=== PATIENT | female | born 1955 | race Caucasian/White ===

== ENCOUNTER 2025-07-30 15:22 | Inpatient (IN) | payer MEDICARE, BC ==
[~2025-07-30] VITALS: Ht 162.6 cm; Wt 56.4 kg
--- NOTE | 2025-07-30 15:45 | ELECTROCARDIOGRAPH REPORT ---
[facility] Test Date: 2025-07-30 Test Time: 15:25:56 Pat Name: JENA FISHMAN Department: EMERGENCY ROOM Room: Gender: F Snuff Blender: ELOY : 1955 Requested By: DEANA MORAN Order Number: [id number] Reading MD: Measurements Intervals [place] Rate: 65 P: -4 [place]: 129 QRS: 19 QRSD: 89 T: 45 QT: 414 QTc: 431 Interpretive Statements Sinus rhythm Low voltage, precordial leads Please click the below link to view image of tracing.
[2025-07-30 16:01] LABS: MEAN PLATELET VOLUME 9.6 FL (7.4-10.4); RED CELL DISTRIBUTION WIDTH 13.0 % (11.5-14.5)
[2025-07-30 16:22] LABS: CREATININE 0.86 MG/DL (0.40-0.90); PRO BRAIN NATRIURETIC PEPTIDE 741 PG/ML (0-125); TOTAL CARBON DIOXIDE 27.8 MMOL/L (24-32); eCRCL 51 ML/MIN; eGFR 65 ML/MIN
--- NOTE | 2025-07-30 16:48 | RADIOLOGY REPORT ---
EXAM: DI CHEST,SINGLE VIEW HISTORY: CP TECHNIQUE: 1 view of the chest COMPARISON: None FINDINGS/IMPRESSION: LUNGS: No pleural effusion, consolidation, or pneumothorax MEDIASTINUM: Unremarkable BONES: No acute osseous abnormality OTHER: None
--- NOTE | 2025-07-30 17:21 | Physician Documentation ---
History of Present Illness ~ Chief Complaint: Chest Pain Stated Complaint: CP Time Seen by MD: 16:56 Mode of Arrival: POV HPI 15-year-old female who presents to the emergency department with complaint of chest pain. Chest pain began a proximally 1:30 p.m. while at rest with associated radiation to the left arm without diaphoresis and/or shortness of breath. Pain is described as a pressure type sensation on a scale of 3-4. No prior history of the same. She is a nonsmoker and nondrinker. She does have a history of dyslipidemia with statin allergy. Use to take aspirin yet discontinued because of frequent bruising. C/P presently with normotensive VS & normal EKG reading. Her pain remains a 3/4 and it is not reproducible with chest wall palpation. Her heart score upon arrival is a four. Past surgical history is that of exploratory lap only. She is accompanied to Emergency Dep artment with her . Patient reports known allergy to statins, Roselyn and recently placed on thyroxine for subclinical hypo thyroidism. Most recently was treated with Bactrim for UTI. No neurological symptoms. No rash. Medication Reconciliation Allergies: Coded Allergies: atorvastatin (Verified Allergy, Unknown, 07/30/25) Review of Systems All Other Systems at this time: Reviewed and Negative Constitutional: Reports: weakness Respiratory: Reports: no symptoms reported Cardiovascular: Reports: chest pain, left arm pain Gastrointestinal: Reports: nausea Musculoskeletal: Reports: no symptoms reported Hematologic/Lymphatic: Reports: no symptoms reported Physical Exam Vital Signs: Temperature: 98.1, Source: Temporal, Heart Rate: 72, Respiratory Rate: 18, BP: 169/72, Pulse Oximetry: 100, Weight: 56.360 Oxygen Flow Rate: 0 General Appearance: alert, WD/WN, mild distress EENT: normal ENT inspection Neck: normal inspection Neck No JVD Respiratory: lungs clear, normal breath sounds Chest: no accessory muscle use Cardiovascular: normal peripheral pulses Gastrointestinal: normal palpation Rectal: deferred Extremities: normal inspection, normal capillary refill Neurologic: oriented x4 Psychiatric: normal mood/affect Skin: normal color, warm/dry Progress Results/Orders Results/Orders Orders - EDI DISLA PAC Urinalysis, Cult If Indicated (07/30/25 17:08) Nitroglycerin Sublingual Tab (Nitrostat (07/30/25 17:15) D-Dimer (07/30/25 17:21) Pt Inr (07/30/25 17:21) PTT (07/30/25 17:21) Osmoality Ua (07/30/25 17:21) Osmolality (07/30/25 17:21) Ua Sodium Random (07/30/25 17:21) Normal Saline 1000ml (0.9% Sodium Chlori (07/30/25 17:30) Page Hospitalist (07/30/25 17:27) Fill Out Med Reconciliation (07/30/25 17:27) Completed Orders - EDI DISLA PAC Aspirin 81mg Chew Tablet (Aspirin 81mg C (07/30/25 17:15) Medications Received in ER Medications (Trade) Dose Ordered Sig/Cody Route PRN Reason Start Time Stop Time Status Last Admin Dose Admin (aspirin 81MG chew tablet) 81 mg ONCE ONCE PO 07/30/25 17:15 07/30/25 17:16 DC 07/30/25 17:25 81 MG (Nitrostat SL tablet) 0.4 mg Q5MIN PRN SL chest pain 07/30/25 17:15 07/30/25 17:25 0.4 MG Vital Signs 07/30/25 07/30/25 07/30/25 15:40 16:57 17:10 Temp 98.1 Pulse 63 72 Resp 18 18 18 B/P (MAP) 167/86 169/72 (104) Pulse Ox 98 100 O2 Flow Rate 0 Laboratory Tests Test 07/30/25 15:52 White Blood Count 8.6 Red Blood Count 4.36 Hemoglobin 13.7 Hematocrit 39.1 Mean Corpuscular Volume 89.6 Mean Corpuscular Hemoglobin 31.4 H Mean Corpuscular Hemoglobin Concent 35.1 Red Cell Distribution Width 13.0 Platelet Count 217 Mean Platelet Volume 9.6 Neutrophils (%) (Auto) 73.5 Lymphocytes (%) (Auto) 15.1 L Monocytes (%) (Auto) 10.4 Eosinophils (%) (Auto) 0.6 Basophils (%) (Auto) 0.4 Neutrophils # (Auto) 6.3 Lymphocytes # (Auto) 1.3 Monocytes # (Auto) 0.9 Eosinophils # (Auto) 0.1 Basophils # (Auto) 0.0 CBC Comment D-Dimer Comment Coagulation Comments Sodium Level 120 *L Potassium Level 4.3 Chloride Level 87 L Carbon Dioxide Level 27.8 Anion Gap 5 L Blood Urea Nitrogen 7 Creatinine 0.86 Estimated GFR/1.73 m2 65 BUN/Creatinine Ratio 8.1 L Glucose Level 95 Calcium Level 9.0 Troponin I High Sensitivity 6 Pro-B-Type Natriuretic Peptide 741 H Albumin 4.0 Chemistry Comments Heart Score: Heart Score Response (Comments) Value History Moderate Suspicious 1 EKG Normal 0 Age >65 2 Risk Factors 1 or 2 risk factors 1 Troponin Normal limit 0 Total 4 Medical Decision Making Additional Information 70-year-old female who presents to the emergency department with a active chest pain. EKG upon arrival non-STEMI, chest x-ray imaging reassuring and initial troponin within normal limits. Heart score four. Workup in the emergency department consists of additional screening labs to include D-dimer fraction excretion of sodium, urinalysis and coags. Initial treatment included aspirin and nitroglycerin. Frequent re-evaluations by nursing staff and physician staff. Screening labs initially showed a sodium of 120 without neurological symptoms. Initial feeling is that this may be caused by the recent Bactrim for UTI causing SIADH.. Discussed the case with hospitalist who will admit the patient. Suspect SIADH, chest pain that may be cardiac in etiology. Pending further evaluation and workup at this time by hospitalist. Can not exclude congestive heart failure, dissection, pulmonary embolus, autoimmune or other unforeseen pulmonary cardiac pathologies. Patient pending hospitalist evaluation and admission. Departure Disposition: ADMITTED INPATIENT Admitted to Inpatient Unit: to hospitalist Admission Level of Care: PCU Impression: Primary Impression: Chest pain at rest Additional Impressions: Hyponatremia UTI (urinary tract infection) Qualified Codes: N39.0 - Urinary tract infection, site not specified Dyslipidemia Referrals: NO PRIMARY CARE PROVIDER (PCP) Signature Scribe Signature: . Attestation: . EDI DISLA PAC Jul 30, 2025 17:20
[2025-07-30] MEDS: normal saline 1000ml 1,000 ML IV SCH ×2 (17:33→17:46)
[2025-07-30] MEDS ORDERED: magnesium sulf-water 4G/100mL 100 ML IV PRN (17:35)
[2025-07-30] MEDS ORDERED: magnesium hydroxide 30ml (MOM) UD suspension PO PRN (17:35)
[2025-07-30] MEDS ORDERED: morphine 4 MG/ML inj SYRINge IV PRN ×2 (17:35)
[2025-07-30] MEDS ORDERED: potassium Cl 40MEQ/1/2NS 520ml 520 ML IV PRN (17:35)
[2025-07-30] MEDS ORDERED: magnesium Cl slow-release 64mg tablet PO PRN (17:35)
[2025-07-30] MEDS ORDERED: magnesium sulf-water 2g/50mL 50 ML IV PRN (17:35)
[2025-07-30] MEDS ORDERED: ondansetron/PF 4mg/2ml inj IV PRN (17:35)
[2025-07-30] MEDS ORDERED: HYDROmorphone inj. 0.5 MG/0.5 ML DISP.SYRIN IV PRN (17:35)
[2025-07-30] MEDS ORDERED: mag hydrox/Alum hydrox/simeth 30ml oral suspension PO PRN (17:35)
[2025-07-30] MEDS ORDERED: potassium Cl 20 mEq SR tablet PO PRN (17:35)
[2025-07-30] MEDS ORDERED: HYDROmorphone/PF 0.2 MG/ML SYRINGE IV PRN (17:35)
[2025-07-30] MEDS ORDERED: HYDROcodone/acetaminophen 5mg/325mg tablet PO PRN (17:35)
[2025-07-30] MEDS ORDERED: HYDROcodone/acetaminophen 10/325mg tab PO PRN (17:35)
[2025-07-30 17:48] LABS: APTT 29 SECONDS (22-32); INR 1.0 INR
[2025-07-30 18:03] LABS: LEUKOCYTE ESTERASE ,URINE NEGATIVE (Neg); NITRITES, URINE NEGATIVE (Neg); OCCULT BLOOD,URINE TRACE-INTACT (Neg)
[2025-07-30 18:04] LABS: UA COLLECTION TYPE CLN CATCH MIDSTREAM
[2025-07-30 18:05] LABS: SQUAMOUS EPITHELIAL CELL,UR NONE SEEN /LPF (FEW)
--- NOTE | 2025-07-30 18:08 | HISTORY AND PHYSICAL-Residence ---
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 Patient endorses chest pain is 4/10 the started this morning pressure-like, associated with diaphoresis and shortness of breath, nausea. 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 She was given aspirin and nitroglycerin in the ER. Patient states that she was recently diagnosed with high TSH and normal T3, T4 levels. She had cold intolerance, fatigue and hair thinning and was started on a low dose of levothyroxine recently two weeks ago. She also had a UTI two weeks ago for which she finished five day course of Bactrim but her symptoms have not resolved yet. Patient states that she had small renal calculi on ultrasound. She denies any fever, chills, recurrent UTIs, hematuria. Allergies: Coded Allergies: atorvastatin (Verified Allergy, Unknown, 07/30/25) Past Medical History Past Medical History Hypothyroidism Past Surgical History Surgical History Comment None Past Social History Social History Comment Denies smoking, alcohol, drugs ROS All Other Systems: Reviewed and Negative ROS Reviewed in full negative except for the pertinent positives in HPI Constitutional: Reports: weakness Respiratory: Reports: no symptoms reported Cardiovascular: Reports: chest pain, left arm pain Gastrointestinal: Reports: nausea Musculoskeletal: Reports: no symptoms reported Hematologic/Lymphatic: Reports: no symptoms reported Exam Vitals: Vital Signs Date Time Temp Pulse Resp B/P (MAP) Pulse Ox O2 Delivery O2 Flow Rate FiO2 07/30/25 17:45 66 18 107/73 (84) 100 0 07/30/25 15:40 98.1 General: General: well developed, well nourished. Awake , alert, and oriented x4, resting comfortably in the bed, in no acute distress . HEENT: Atraumatic, normocephalic, EOMI, anicteric sclera B; pink conjunctiva; PERRLA, normal oropharynx, moist oral and nasal mucosa. Tympanic membrane , nose , throat clear. Neck: Trachea midline. Supple, full range of motion, no JVD, bruit , hepatojugular reflex , lymphadenopathy or masses, or other lesions Cardiac: Regular rhythm, regular rate no murmurs, rubs, or gallops. Normal S1 and S2, no S3 noticed. PMI is normal. Respiratory: Equal breath sounds bilaterally, no tachypnea; lungs clear to auscultation bilaterally, no wheezing ,rub or rales, or crackles. Chest wall is symmetric and without deformity. No signs of trauma. Chest wall is nontender. No signs of respiratory distress. Resonance is normal upon percussion bilaterally. Gastrointestinal: Abdomen symmetric, non-distended, soft, non-tender, normal bowel sounds x4 quadrant, normoactive, no hepatosplenomegaly , no masses , no bruit, no flank pain bilaterally. No voluntary guarding, rebound, or rigidity. No tenderness to percussion. No pulsatile masses. Equal femoral pulses. No Sykes's sign or McBurney point tenderness. Back; no CVA tenderness bilaterally, no deformities. Neck and back are without deformity as well. No tenderness noted on palpation of the spinous processes. Spinous processes are midline. Cervical, thoracic, and lumbar paraspinal muscles are not tender and are without spasm. : normal external genitalia, without lesions, swelling, masses or tenderness. Musculoskeletal: Extremities, normal range of motion, non-tender, muscle strength 5/5 x 4. Negative Homans signs bilaterally on lower extremity. Distal pulses full symmetrical, no clubbing, cyanosis , edema. Neurological: Speech is clear, alert, and oriented x 4. No motor or sensory deficit, deep tendon reflexes normal, cerebellar intact. Cranial nerves II-XII intact. Psych: Alert and or appropriate, normal affect. Vascular: Good distal pulses, which are equal x4; capillary refill less than 2 seconds. Skin: Warm, dry, no pallor, no rash or petechiae. Diagnostic Data Last Recorded Lab Results: 07/30/25 1552 07/30/25 1552 Diagnostic Data: Laboratory Tests Test 07/30/25 15:52 Prothrombin Time 10.5 SECONDS (9.0-12.0) INR International Normalized Ratio 1.0 INR Activated Partial Thromboplast Time 29 SECONDS (22-32) D-Dimer 0.75 MG/L FEU (0-0.50) H D-Dimer Comment Coagulation Comments Advance Care Planning Advanced Care plannin - 30 Minutes (I spent a total of 17 minutes on reviewing various resuscitative measures/ ACP with the patient at the time of admission. The patient has decided on a full code status) Additional Plan Unstable angina Heart score four EKG shows sinus rhythm, no Q-waves, ST elevation no depression. Serial troponins are within normal limits. Received aspirin, nitroglycerin in the ER. Heart score is four Patient never had a stress test in the past but open to having one. Follow up with the echocardiogram, lipid panel Hypotonic Hyponatremia secondary to UTI versus hypothyroidism versus medication induced hyponatremia Serum osmolality is 252, hence hypoosmolar hyponatremia. Urine osmolality, urine sodium, TSH pending. Hyponatremia likely secondary to UTI. Patient is hypovolemic. Other possibility is that trimethoprim (Bactrim) causes renal salt wasting as urinary sodium is greater than 20 this could be probable etiology for her sodium loss. Discontinued trimethoprim sulfamethoxazole. Started on IV fluids NS at the rate of 50 mL/hour with a goal to correct sodium <8 mEq in 24 hours. Monitor BNP q.6 hours to prevent over-correction of sodium and prevent osmotic demyelination syndrome. Patient does not have any clinical signs of mental clouding, drowsiness, altered mental status. Restart home levothyroxine after med rec. Recent UTI Patient continues to have urinary symptoms, however UA does not show any active infection. Started on ceftriaxone IV 1 g daily day one. Follow up with the urine cultures. Code Status: Full code DVT Prophylaxis: Heparin Analgesia/Sedation: [place] p.r.n. Lines/Tubes: PIV Gi Prophylaxis: None Nutrition: Regular diet PT: Yes Prognosis: Guarded Disposition: Admit to PCU with telemetry monitoring Anjum Sevilla MD Internal Medicine Resident PGY-2 Date of Service: Jul 30, 2025 Billing Provider: JANELL KINNEY MD,ANJUM SEVILLA, RES Jul 30, 2025 18:08
[2025-07-30 18:18] LABS: OSMOLALITY UA 123 MOSM/K (50-1400)
[2025-07-30] MEDS: CefTRIAXone/D5W-Rocephin 1gm 50 ML IV SCH (18:36)
[2025-07-30] MEDS ORDERED: LEVO25TA7 PO (18:49)
[2025-07-30 19:04] LABS: CREATININE 0.84 MG/DL (0.40-0.90); TOTAL CARBON DIOXIDE 26.8 MMOL/L (24-32); eCRCL 52 ML/MIN; eGFR 67 ML/MIN
[2025-07-30] MEDS: K and/or MAG REPLACEMENT MC SCH (20:00)
[2025-07-30] MEDS: docusate sod 100mg capsule PO SCH (20:00)
[2025-07-30] MEDS: heparin, porcine 5000 units/ml vial SQ SCH (20:19)
[2025-07-30 22:00] VITALS: BP 135/64; PULSE 60; RESP 14; TEMP 97.7; O2SAT 99
[2025-07-30 22:30] VITALS: BP 130/71; PULSE 96; RESP 14; RESP 20; TEMP 97.7; O2SAT 97; O2SAT 99
[2025-07-30 23:02] VITALS: BP_SYST 130; BP_SYST 138; BP_DIAS 71; BP_DIAS 76; BP_DIAS 84
[2025-07-30 23:46] LABS: CREATININE 0.88 MG/DL (0.40-0.90); TOTAL CARBON DIOXIDE 28.0 MMOL/L (24-32); eCRCL 50 ML/MIN; eGFR 63 ML/MIN
[2025-07-31] VITALS (15 sets, daily range): BP systolic 114–177; BP diastolic 57–105; PULSE 59–107; RESP 13–16; TEMP 97.1–98.1; O2SAT 95–100
[2025-07-31 06:38] LABS: MEAN PLATELET VOLUME 9.6 FL (7.4-10.4); RED CELL DISTRIBUTION WIDTH 12.9 % (11.5-14.5)
[2025-07-31 06:46] LABS: CHOL/HDL RATIO 3.4 (0.00-4.99); CREATININE 0.73 MG/DL (0.40-0.90); LDL CHOLESTEROL 103 MG/DL (50-100); TOTAL CARBON DIOXIDE 26.3 MMOL/L (24-32); eCRCL 60 ML/MIN; eGFR 78 ML/MIN
[2025-07-31] MEDS: levoTHYROXINE 25mcg tablet PO SCH ×2 (08:00→11:00)
[2025-07-31] MEDS ORDERED: SULF1TAB45 PO (08:47)
[2025-07-31] MEDS ORDERED: METR-349 (08:47)
--- NOTE | 2025-07-31 10:50 | ELECTROCARDIOGRAPH REPORT ---
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 DEREK Quintanilla Measurements Intervals [place] Rate: 66 P: 82 CO: 154 QRS: 20 QRSD: 82 T: 51 QT: 401 QTc: 421 Interpretive Statements Sinus rhythm Multiple premature complexes, vent & supraven Probable left atrial enlargement Electronically Signed On 07-31-2025 16:29:[address] DEREK Quintanilla Please click the below link to view image of tracing.
[2025-07-31] MEDS ORDERED: metoprolol tartrate 1mg/ml inj IV PRN (11:20)
[2025-07-31] MEDS ORDERED: aminophylline 250mg/10ml inj. IV PRN (11:20)
[2025-07-31 13:06] LABS: CREATININE 0.79 MG/DL (0.40-0.90); TOTAL CARBON DIOXIDE 28.8 MMOL/L (24-32); eCRCL 56 ML/MIN; eGFR 72 ML/MIN
[2025-07-31] MEDS: regadenoson 0.4mg/5ml syringe IV PRN (14:27)
--- NOTE | 2025-07-31 15:15 | PROGRESS NOTE- Residence ---
Progress Note - Resident Providers to CC Resident Creating Document: SHERIN JAMES RES CC: JANELL KINNEY MD ~ Antibiotic Timeout Antibiotic Ordered?: Yes Subjective Patient was seen and examined at her bedside, with her by her side. Patient had another episode of mild left-sided chest pain, rated the pain a three on 10, not associated with position or food, she claims that the pain was similar to the pain she had yesterday. However ECG did not show any significant changes patient's heart rate continued to be in 80-100 range. Ordered STRESS TEST for this patient considering patient's age and repeated chest pains. No other acute overnight symptoms reported Objective Vital Signs Date Time Temp Pulse Resp B/P (MAP) Pulse Ox O2 Delivery O2 Flow Rate FiO2 07/31/25 14:33 88 16 114/63 98 Room Air 07/31/25 11:00 97.1 07/30/25 18:47 0 General: Awake, oriented to person, place and time HEENT: Conjunctive are pink, sclerae clear, no icterus, pupil is equal in both sides, reactive to light, no ear discharge, no pharyngeal erythema or an edema. Neck: Supple, no JVD, no lymphadenopathy and thyromegaly. Chest: Equal air entry on both lungs, no additional sounds no rhonchi no wheezing at the moment. Cardiovascular: S1-S2 regular sinus rhythm and, regular rate, no gallops, no rubs, no murmurs Abdomen: No visible peristalsis, Bowel sounds present on auscultation, soft, no guarding, no rigidity Extremities: No obvious deformities, no pitting edema bilaterally, capillary refill intact, peripheral pulsations are intact on both sides Central Nervous System: No focal neurological deficits, no motor or sensory weakness in all 4 extremities, could move all 4 extremities, 2+ deep tendon reflexes, negative Babinski. Musculoskeletal: No joint swelling, deformities, inflammations, and no scoliosis and back tenderness Skin: Warm and dry. Dry oral mucosa. 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 Plan Plan Unstable angina Heart score four EKG shows sinus rhythm, no Q-waves, ST elevation no depression. Serial troponins are within normal limits. Echocardiogram showed EF of 65-70% Patient another episode of chest pain rated the pain three on 10, EKG today showed no significant change. Ordered stress test for the patient keeping in mind patient's recurrent episodes of chest pain, unstable angina Lipid profile showed very slight elevation of LDL 103,rest of the parameters appeared normal Patient is an extremely active person. Plan -follow up with stress test report Hypothyroidism Patient's TSH was 2.06, Continue patient's home medication levothyroxine 25 mcg Hypotonic hypovolemic hyponatremia Serum osmolality is 252, urine sodium is 25, urine osmolality is 123 Patient does not have any clinical signs of mental clouding, drowsiness, altered mental status. Patient recently had a five day course of Bactrim for her UTI outpatient Bactrim may cause renal salt wasting, urinary sodium is greater than 20 consistent with renal salt wasting and timeline of hyponatremia coinciding with the initiation of medication. Serum sodium prior to initiation of medication he was 132 Patient's repeat sodium today is at 136, initially it was 120 -discontinued patient's sodium replacement Recent UTI Patient's burning micturition subsided today, however urinalysis was negative and WBC within normal range Plan -continue to follow with patient's urine culture -continued Rocephin 1 g Code Status: Full code DVT Prophylaxis: Heparin Analgesia/Sedation: [place] p.r.n. Lines/Tubes: PIV Gi Prophylaxis: None Nutrition: Regular diet PT: Yes Prognosis: Guarded Disposition: Patient is currently undergoing her stress test,follow up with stress test report Sherin James MD Internal Medicine Resident PGY-1 PGY2 resident attestation: I have seen and evaluated the patient independently. I have reviewed the history, physical examination, laboratory and imaging findings and the assessment and plan documented by the PGY1 resident. I agree with the findings and plan as documented with the following additions/modifications: Physical exam: General: Awake and Alert, no acute distress. HEENT: Conjunctiva pink, Sclera clear, Mucus Membranes moist Neck: Supple without masses and tenderness. Resp: Unlabored. Equal breath sounds bilaterally. Heart: Regular rhythm, normal S1 and S2, no rub, murmur or gallop, muffled heart sounds. Abdomen: Soft and non tender no organomegaly. Normal bowel sounds x4 quadrant normoactive. No guarding or rigidity. Extremities: Normal ROM, no swelling, nontender. No cyanosis,clubbing or edema. 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 Skin: Warm and Dry. Unstable angina Stress test negative. Safe to discharge home tomorrow. Hypotonic hyponatremia secondary to Bactrim use trimethoprim (Bactrim) may cause renal salt wasting, urinary sodium is greater than 20 consistent with renal salt wasting and timeline of hyponatremia coinciding with the initiation of medication. Serum sodium prior to initiation of medication he was 132 Discontinued trimethoprim sulfamethoxazole. Discontinue IV fluids to prevent rapid correction of sodium UTI, resolved with IV antibiotics Anjum Brenner MD PGY2 internal medicine resident Date of Service: Jul 31, 2025 Billing Provider: JANELL KINNEY MD, JAHNAVI, RES Jul 31, 2025 15:15 ANJUM SANDERS, RES Jul 31, 2025 18:41
--- NOTE | 2025-07-31 15:58 | RADIOLOGY REPORT ---
Procedure: NJ NM KAITLIN SCAN Exam Date: 07/31/2025 01:30 PM Reason for study/Clinical History: unstable angina Comparison Study: None Myocardial Perfusion Study with SPECT Technique: The patient received an intravenous injection of 8.6 mCi of technetium-99m sestamibi while at rest. After a short delay, SPECT tomographic images of the heart were obtained. The patient then went to the stress lab where they received an intravenous infusion of 0.[address] andard protocol. 34.7 mCi of technetium-99m sestamibi was injected intravenously immediately after the start of the lexiscan infusion. Gated SPECT tomographic images of the heart were acquired and processed. Findings: No reversible perfusion defect. End diastolic volume: 54 mL End systolic volume: 22 mL The left ventricular ejection fraction is 59 %. (normal greater than 50%) Impression: No reversible defect. The left ventricular ejection fraction is 59 %.
[2025-07-31] MEDS: hydrALAZINE 20mg/ml inj. IV ONE (17:15)
[2025-07-31 20:10] LABS: CREATININE 0.74 MG/DL (0.40-0.90); TOTAL CARBON DIOXIDE 25.6 MMOL/L (24-32); eCRCL 59 ML/MIN; eGFR 77 ML/MIN
[2025-08-01 02:00] VITALS: BP 124/64; PULSE 71; RESP 15; TEMP 97.6; O2SAT 96
[2025-08-01 02:06] LABS: CREATININE 0.66 MG/DL (0.40-0.90); TOTAL CARBON DIOXIDE 23.0 MMOL/L (24-32); eCRCL 67 ML/MIN; eGFR 88 ML/MIN
[2025-08-01] MEDS: potassium Cl 20 mEq SR tablet PO PRN (02:38)
[2025-08-01 06:00] VITALS: BP 129/67; PULSE 56; RESP 12; TEMP 97.5; O2SAT 100
[2025-08-01 06:47] LABS: CREATININE 0.85 MG/DL (0.40-0.90); TOTAL CARBON DIOXIDE 26.9 MMOL/L (24-32); eCRCL 52 ML/MIN; eGFR 66 ML/MIN
[2025-08-01 06:52] LABS: MEAN PLATELET VOLUME 9.8 FL (7.4-10.4); RED CELL DISTRIBUTION WIDTH 13.1 % (11.5-14.5)
[2025-08-01 08:00] VITALS: RESP 12; O2SAT 100
--- NOTE | 2025-08-01 14:04 | DISCHARGE SUMMARY-Residence ---
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 Patient endorsed chest pain to be 4/10 pressure-like, associated with diaphoresis and shortness of breath, nausea. She was given aspirin and nitroglycerin in the ER. Patient's EKG findings did not show any significant ST segment elevation, patient's pain subsided over a period of time. Patient had 3 negative troponins. Patient's echocardiogram reported EF of 65-70% and no other significant findings were reported. However,patient had another episode of chest pain the following day, we ordered a stress test at that point. Stress test reported no reversible defect and left ventricular ejection fraction of 59%. She did not require any further investigation at this point as NSTEMI and STEMI were ruled out. Patient had complaints of burning micturition few days before admission, and she was prescribed Bactrim outpatient clinic. Patient also developed hypotonic hyponatremia and urine sodium was 25, we will possibly due to Bactrim usage. Patient's sodium was initially 120, treated appropriately with normal saline and on admission patient's sodium was between 135-137. Patient continued to have burning micturition symptoms so we treated her with ceftriaxone. Patient has a known history of hypothyroidism, rated a repeat TSH which was within the normal range, we continued her home medication levothyroxine 25 mcg. Significant findings: Echocardiogram 07/31/25 Conclusion Overall LVEF is 65-70%. Normal LV size and wall thickness. Overall systolic function is normal. RV is mildly dilated in size with normal function. Trileaflet AV appears mildly sclerotic without stenosis or insufficiency. Mild MV annular calcification and leaflet thickening without stenosis. Trace regurgitation. TV appears structurally normal with mild eccentric regurgitation. Normal PV without stenosis, physiologic insufficiency. Normal pericardium. No effusion. Stress test: 07/31/25 No reversible defect. The left ventricular ejection fraction is 59 %. Vital Signs Date Time Temp Pulse Resp B/P (MAP) Pulse Ox O2 Delivery O2 Flow Rate FiO2 08/01/25 08:00 12 100 Room Air 08/01/25 06:00 59 08/01/25 06:00 97.5 129/67 (87) 07/30/25 18:47 0 Laboratory Tests Test 07/30/25 15:52 07/30/25 17:43 07/30/25 17:57 07/30/25 18:41 White Blood Count 8.6 X10'3 Red Blood Count 4.36 X10'6 Hemoglobin 13.7 g/dl Hematocrit 39.1 % Mean Corpuscular Volume 89.6 FL Mean Corpuscular Hemoglobin 31.4 PG Mean Corpuscular Hemoglobin Concent 35.1 g/dL Red Cell Distribution Width 13.0 % Platelet Count 217 X10'3 Mean Platelet Volume 9.6 FL Neutrophils (%) (Auto) 73.5 % Lymphocytes (%) (Auto) 15.1 % Monocytes (%) (Auto) 10.4 % Eosinophils (%) (Auto) 0.6 % Basophils (%) (Auto) 0.4 % Neutrophils # (Auto) 6.3 X10'3 Lymphocytes # (Auto) 1.3 X10'3 Monocytes # (Auto) 0.9 X10'3 Eosinophils # (Auto) 0.1 X10'3 Basophils # (Auto) 0.0 X10'3 CBC Comment Prothrombin Time 10.5 SECONDS INR International Normalized Ratio 1.0 INR Activated Partial Thromboplast Time 29 SECONDS D-Dimer 0.75 MG/L FEU D-Dimer Comment Coagulation Comments Sodium Level 120 MMOL/L 124 MMOL/L Potassium Level 4.3 MMOL/L 3.9 MMOL/L Chloride Level 87 MMOL/L 90 MMOL/L Carbon Dioxide Level 27.8 MMOL/L 26.8 MMOL/L Anion Gap 5 7 Blood Urea Nitrogen 7 MG/DL 6 MG/DL Creatinine 0.86 MG/DL 0.84 MG/DL Estimated GFR/1.73 m2 65 ML/MIN 67 ML/MIN BUN/Creatinine Ratio 8.1 7.1 Glucose Level 95 MG/DL 86 MG/DL Osmolality 252 MOSM/K Calcium Level 9.0 MG/DL 8.6 MG/DL Troponin I High Sensitivity 6 ng/L 5 ng/L 6 ng/L Pro-B-Type Natriuretic Peptide 741 PG/ML Albumin 4.0 G/DL 3.5 G/DL Chemistry Comments Urine Specimen Description Cln catch midstream Urine Color Yellow Urine Clarity Clear Urine pH 7.0 Urine Specific [place] <=1.005 Urine Protein Negative mg/dl Urine Glucose (UA) Negative mg/dl Urine Ketones 15 mg/dl Urine Occult Blood Trace-intact Urine Nitrite Negative Urine Bilirubin Negative Urine Urobilinogen 0.2 E.U/dL Urine Leukocyte Esterase Negative Urine RBC 3-10 /HPF Urine WBC 0-4 /HPF Urine Squamous Epithelial Cells None seen /LPF Urine Bacteria None seen /HPF Urine Culture Indicated Not ind Volume Urine Centrifuged 10 ml Urine Osmolality 123 MOSM/K Urine Random Sodium 25 MEQ/L Urine Comment Hemoglobin A1c 5.2 % Magnesium Level 1.9 MG/DL Troponin I High Sens Percent Delta 16 % 20 % Troponin I Hi Sens Absolute Change -1 ng/L 1 ng/L Thyroid Stimulating Hormone (TSH) 2.06 ulU/ml Test 07/30/25 20:24 07/30/25 23:21 07/31/25 06:21 07/31/25 12:29 Troponin I High Sensitivity 7 ng/L 6 ng/L Troponin I High Sens Percent Delta 16 % 14 % Troponin I Hi Sens Absolute Change 1 ng/L -1 ng/L Sodium Level 130 MMOL/L 132 MMOL/L 136 MMOL/L Potassium Level 3.9 MMOL/L 3.9 MMOL/L 3.9 MMOL/L Chloride Level 96 MMOL/L 100 MMOL/L 100 MMOL/L Carbon Dioxide Level 28.0 MMOL/L 26.3 MMOL/L 28.8 MMOL/L Anion Gap 6 6 7 Blood Urea Nitrogen 7 MG/DL 6 MG/DL 9 MG/DL Creatinine 0.88 MG/DL 0.73 MG/DL 0.79 MG/DL Estimated GFR/1.73 m2 63 ML/MIN 78 ML/MIN 72 ML/MIN BUN/Creatinine Ratio 8.0 8.2 11.4 Glucose Level 105 MG/DL 93 MG/DL 97 MG/DL Calcium Level 8.5 MG/DL 8.5 MG/DL 8.4 MG/DL Albumin 3.4 G/DL 3.2 G/DL 3.3 G/DL Chemistry Comments White Blood Count 8.0 X10'3 Red Blood Count 4.01 X10'6 Hemoglobin 12.6 g/dl Hematocrit 36.2 % Mean Corpuscular Volume 90.1 FL Mean Corpuscular Hemoglobin 31.4 PG Mean Corpuscular Hemoglobin Concent 34.8 g/dL Red Cell Distribution Width 12.9 % Platelet Count 194 X10'3 Mean Platelet Volume 9.6 FL Neutrophils (%) (Auto) 67.6 % Lymphocytes (%) (Auto) 20.2 % Monocytes (%) (Auto) 10.6 % Eosinophils (%) (Auto) 0.7 % Basophils (%) (Auto) 0.9 % Neutrophils # (Auto) 5.4 X10'3 Lymphocytes # (Auto) 1.6 X10'3 Monocytes # (Auto) 0.9 X10'3 Eosinophils # (Auto) 0.1 X10'3 Basophils # (Auto) 0.1 X10'3 CBC Comment Magnesium Level 1.9 MG/DL Triglycerides Level 41 MG/DL Cholesterol Level 158 MG/DL LDL Cholesterol 103 MG/DL HDL Cholesterol 46 MG/DL Cholesterol/HDL Ratio 3.4 Thyroid Stimulating Hormone (TSH) 2.68 ulU/ml Test 07/31/25 19:47 08/01/25 01:30 08/01/25 06:14 Sodium Level 133 MMOL/L 137 MMOL/L 133 MMOL/L Potassium Level 3.8 MMOL/L 3.4 MMOL/L 3.8 MMOL/L Chloride Level 100 MMOL/L 106 MMOL/L 98 MMOL/L Carbon Dioxide Level 25.6 MMOL/L 23.0 MMOL/L 26.9 MMOL/L Anion Gap 7 8 8 Blood Urea Nitrogen 8 MG/DL 7 MG/DL 7 MG/DL Creatinine 0.74 MG/DL 0.66 MG/DL 0.85 MG/DL Estimated GFR/1.73 m2 77 ML/MIN 88 ML/MIN 66 ML/MIN BUN/Creatinine Ratio 10.8 10.6 8.2 Glucose Level 127 MG/DL 88 MG/DL 94 MG/DL Calcium Level 9.0 MG/DL 7.5 MG/DL 9.0 MG/DL Albumin 3.4 G/DL 2.8 G/DL 3.8 G/DL Chemistry Comments White Blood Count 8.9 X10'3 Red Blood Count 4.40 X10'6 Hemoglobin 13.9 g/dl Hematocrit 40.0 % Mean Corpuscular Volume 90.9 FL Mean Corpuscular Hemoglobin 31.7 PG Mean Corpuscular Hemoglobin Concent 34.8 g/dL Red Cell Distribution Width 13.1 % Platelet Count 232 X10'3 Mean Platelet Volume 9.8 FL Neutrophils (%) (Auto) 66.9 % Lymphocytes (%) (Auto) 21.8 % Monocytes (%) (Auto) 9.2 % Eosinophils (%) (Auto) 1.3 % Basophils (%) (Auto) 0.8 % Neutrophils # (Auto) 6.0 X10'3 Lymphocytes # (Auto) 1.9 X10'3 Monocytes # (Auto) 0.8 X10'3 Eosinophils # (Auto) 0.1 X10'3 Basophils # (Auto) 0.1 X10'3 CBC Comment Magnesium Level 1.9 MG/DL Total Bilirubin 0.6 MG/DL Aspartate Amino Transf (AST/SGOT) 35 U/L Alanine Aminotransferase (ALT/SGPT) 13 U/L Alkaline Phosphatase 72 IU/L Total Protein 7.6 G/DL Globulin 3.8 G/DL Albumin/Globulin Ratio 1.0 Patient was clinically stable to be discharged. Physical examination the time of discharge: General: Awake, oriented to person, place and time HEENT: Conjunctive are pink, sclerae clear, no icterus, pupil is equal in both sides, reactive to light, no ear discharge, no pharyngeal erythema or an edema. Neck: Supple, no JVD, no lymphadenopathy and thyromegaly. Chest: Equal air entry on both lungs, no additional sounds no rhonchi no wheezi ng at the moment. Cardiovascular: S1-S2 regular sinus rhythm and, regular rate, no gallops, no rubs, no murmurs Abdomen: No visible peristalsis, Bowel sounds present on auscultation, soft, no guarding, no rigidity Extremities: No obvious deformities, no pitting edema bilaterally, capillary refill intact, peripheral pulsations are intact on both sides Central Nervous System: No focal neurological deficits, no motor or sensory weakness in all 4 extremities, could move all 4 extremities, 2+ deep tendon reflexes, negative Babinski. Musculoskeletal: No joint swelling, deformities, inflammations, and no scoliosis and back tenderness Skin: Warm and dry. Dry oral mucosa. Discharge instructions Please follow with the primary care doctor within a week Please call 911 in case of any shortness of breath, chest pain *Problems/Diagnosis: (1) UTI (urinary tract infection) Status: Acute (2) Hyponatremia Status: Acute (3) Chest pain at rest Status: Acute Total Time Spent on D/C: Up to 30 Minutes Date of Service: Aug 01, 2025 Billing Provider: JANELL KINNEY MD Problem Qualifiers (1) UTI (urinary tract infection): Urinary tract infection type: site unspecified Hematuria presence: without hematuria Qualified Codes: N39.0 - Urinary tract infection, site not specified NATALY JAMES, RES Aug 01, 2025 14:02
--- NOTE | 2025-08-02 08:58 | CARDIOLOGY REPORT ---
APPROVED REPORT EXAM: Comprehensive 2D, Doppler, and color-flow Echocardiogram. Patient Location: 3[address] Blood Pressure: 120/57 mmHg Heart Rate: 67 bpm Rhythm: SINUS w/OCCASIONAL PVCs Indications CHEST PAIN ELEVATED PROBNP (741) Laboratory Geneticist: none Previous echo: none 2D Dimensions RVDd 4.1 cm IVSd 1.0 (0.7-1.1cm) LVDd 3.6 cm PWd 1.4 (0.7-1.1cm) IVSs 1.3 (0.8-1.2cm) LVDs 2.4 (2.5-4.0cm) PWs 1.6 (0.8-1.2cm) LVOT Diameter 1.84 (1.8-2.4cm) LVEF(%) 62.1 (>50%) Ao Asc Diam. 2.89 cm IVC 17.37 mm FS (%) 32.7 % SV 33.1 ml CO 4.5 L/min M-Mode Dimensions Left Atrium(MM) 2.37 (2.5-4.0cm) IVSd 0.61 (0.7-1.1cm) LVDd 4.39 (4.0-5.6cm) Aortic Root 2.56 (2.2-3.7cm) PWd 0.74 (0.7-1.1cm) Aortic Cusp Exc 1.89 (1.5-2.0cm) IVSs 1.44 cm MV EPSS 0.3 (<0.5cm) LVDs 2.66 (2.0-3.8cm) FS (%) 39 % PWs 1.09 cm ESV(Teich) 26.0 ml LVEF(%) 70 (>50%) Aortic Valve AoV Peak Orlin. 140.2 cm/s AoV VTI 26.3 cm AO Peak GR. 7.9 mmHg AO Mean GR. 4 mmHg LVOT VTI 22.88 cm LVOT Peak Orlin. 110.5 cm/s RICK(VTI)/BSA 2.32 cm2/m2 RICK (VTI) 2.32 cm2 Mitral Valve MV E Velocity 109.7 cm/s MV Peak Gr. 7 mmHg MV DECEL TIME 200 ms MV A Velocity 57.8 cm/s MV PHT 56 ms E/A Ratio 1.9 MVA (PHT) 3.93 cm2 MV VMax 134.4 cm/s TDI Medial E' P. V 11.85 cm/s E/Medial E' 9.3 Tricuspid Valve TR P. Velocity 262 cm/s RAP ESTIMATE 5 mmHg TR Peak Gr. 27 mmHg RVSP 32 mmHg Pulmonary Vein S1 Velocity 64.0 cm/s D2 Velocity 32.6 cm/s PVa Velocity 27.9 cm/s PVa Duration 88 msec LEFT VENTRICLE Normal LV size and wall thickness. Overall systolic function is normal. Overall LVEF is 65-70%. RIGHT VENTRICLE RV is mildly dilated in size with normal function. ATRIA LA size is normal. AORTIC VALVE Trileaflet AV appears mildly sclerotic without stenosis or insufficiency. MITRAL VALVE Mild MV annular calcification and leaflet thickening without stenosis. Trace regurgitation. TRICUSPID VALVE TV appears structurally normal with mild eccentric regurgitation. PULMONIC VALVE Normal PV without stenosis, physiologic insufficiency. GREAT VESSELS Aortic root is normal in size. Ascending aorta is normal in size. The IVC is normal in size and collapses greater than 50% with inspiration. PERICARDIUM Normal pericardium. No effusion. Other Information Study Quality: Adequate Conclusion Overall LVEF is 65-70%. Normal LV size and wall thickness. Overall systolic function is normal. RV is mildly dilated in size with normal function. Trileaflet AV appears mildly sclerotic without stenosis or insufficiency. Mild MV annular calcification and leaflet thickening without stenosis. Trace regurgitation. TV appears structurally normal with mild eccentric regurgitation. Normal PV without stenosis, physiologic insufficiency. Normal pericardium. No effusion.
== END 2025-08-01 09:40 | disposition home or self-care (01) | DRG 641 ==
LOC: ER 15:23 → ED HOLD 17:38 → PCU 3S 22:01
PROVIDERS: ADMIT Family Medicine; ATTEND Family Medicine
PROC: 4A02XM4 Measurement of Cardiac Total Activity, External Approach (ICD-10-PCS; principal; 2025-07-31)
PROC: 3E033HZ Introduction of Radioactive Substance into Peripheral Vein, Percutaneous Approach (ICD-10-PCS; 2025-07-31)
DX: E87.1 Hypo-osmolality and hyponatremia (principal); I20.0 Unstable angina; N39.0 Urinary tract infection, site not specified; E86.1 Hypovolemia; E03.9 Hypothyroidism, unspecified; T50.995A Adverse effect of other drugs, medicaments and biological substances, initial encounter; R07.89 Other chest pain; Z88.8 Allergy status to other drugs, medicaments and biological substances
CPT/HCPCS: 36415; 71045; 78452; 80048; 80053; 80061; 81001; 83036; 83735; 83880; 83930; 83935; 84300; 84443; 84484; 85025; 85379; 85610; 85730; 87081; 93005; 93017; 93306; 96365; 99285; A9500; G0378; J0360; J0696; J1644; J2785; J7030